=== PATIENT | female | born 1990 | race Caucasian/White ===

== ENCOUNTER 2017-01-05 15:59 | Emergency (ER) | payer BC ==
[~2017-01-05] VITALS: Ht 165.1 cm; Wt 75.5 kg
[2017-01-05 16:02] VITALS: TEMP 98.1
[2017-01-05] MEDS ORDERED: ALDACTONE 25MG25 M1 PO (16:29)
[2017-01-05] MEDS ORDERED: TESSALON P100 MG/CAP PO (16:52)
[2017-01-05] MEDS ORDERED: PROAIR HFA0.09 MG/AC IH (16:52)
[2017-01-05 16:53] VITALS: BP 126/68; PULSE 97
== END 2017-01-05 17:07 | disposition home or self-care (01) ==
LOC: COL.ER 15:59
DX: J40 Bronchitis, not specified as acute or chronic (principal); F17.210 Nicotine dependence, cigarettes, uncomplicated; Z98.890 Other specified postprocedural states
CPT/HCPCS: J8540

== ENCOUNTER 2018-05-22 14:43 | Emergency (ER) | payer MEDICAID ==
[~2018-05-22] VITALS: Ht 165.1 cm; Wt 78.8 kg
[~2018-05-22 14:43] MED LIST: ALDACTONE 25MG25 M1 PO; PROAIR HFA0.09 MG/AC IH; TESSALON P100 MG/CAP PO
[2018-05-22 14:49] VITALS: BP 123/62; PULSE 78; TEMP 97.9
[2018-05-22] MEDS ORDERED: AMOXICILLIN 8751 TAB PO (16:40)
== END 2018-05-22 16:54 | disposition home or self-care (01) ==
LOC: COL.ER 14:43
DX: J32.9 Chronic sinusitis, unspecified (principal); F17.210 Nicotine dependence, cigarettes, uncomplicated; J45.909 Unspecified asthma, uncomplicated; Z90.89 Acquired absence of other organs